=== PATIENT | female | born 2000 | race Caucasian/White ===

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

== ENCOUNTER 2022-05-10 13:05 | Emergency (ER) | payer OTHER ==
[2022-05-10 13:10] VITALS: BP 125/65; TEMP 98.5; BMI 20.1
[2022-05-10 13:58] LABS: BASO % 0.3 % (0-2.0); EOS % 1.3 % (0-4.5); HEMATOCRIT 40.1 % (32.4-45.2); HEMOGLOBIN 13.8 GM/dL (10.7-15.3); LYMPH % 13.8 % (8-40); MCH 29.5 pg (25.7-33.7); MCHC 34.3 g/dl (32.0-36.0); MEAN CELL VOLUME 85.9 fl (80-96); MEAN PLT VOLUME 7.5 fl (7.5-11.1); MONO % 7.7 % (3.8-10.2); NEUT % 76.9 % (42.8-82.8); PLATELET COUNT 269 10^3/uL (134-434); RBC 4.67 M/mm3 (3.60-5.2); RDW 13.2 % (11.6-15.6); WHITE BLOOD COUNT 8.7 K/mm3 (4.0-10.0)
[2022-05-10 14:21] LABS: CALCIUM 9.5 mg/dL (8.5-10.1)
[2022-05-10 14:22] LABS: ALBUMIN 3.9 g/dl (3.4-5.0); BLOOD UREA NITROGEN 10.7 mg/dL (7-18)
[2022-05-10 14:25] LABS: CREATININE 0.7 mg/dL (0.55-1.3)
[2022-05-10 14:26] LABS: BILIRUBIN,TOTAL 0.5 mg/dL (0.2-1); TOT PROT 7.6 g/dl (6.4-8.2)
[2022-05-10 14:34] VITALS: PULSE 98; RESP 18
== END 2022-05-10 15:35 | disposition home or self-care (01) ==
LOC: JER 13:05
DX: R05.1 Acute cough (principal); R06.7 Sneezing; J30.2 Other seasonal allergic rhinitis
CPT/HCPCS: 36415; 71046-TC-FY; 80053; 85025; 99284-25